=== PATIENT | male | born 1980 | race American Indian/Alaskan Native ===

== ENCOUNTER 2016-11-20 19:39 | Emergency (ER) | payer SELFPAY ==
[2016-11-20 20:19] VITALS: BP 126/83
== END 2016-11-20 23:20 | disposition left against medical advice (07) ==
LOC: ED 19:39
DX: H57.8 Other specified disorders of eye and adnexa (principal); Z53.21 Procedure and treatment not carried out due to patient leaving prior to being seen by health care provider

== ENCOUNTER 2016-12-11 14:20 | Emergency (ER) | payer SELFPAY ==
[2016-12-11] MEDS ORDERED: DELTASONE ONE (19:54)
[2016-12-11] MEDS ORDERED: TYLENOL ONE (19:54)
[2016-12-11] MEDS ORDERED: DELTASONE PO ONE (20:04)
[2016-12-11] MEDS ORDERED: TYLENOL PO ONE (20:05)
[2016-12-11] MEDS ORDERED: DUONEB 0.5 MG-3 MG/3 ML SOLN IH ONE (20:05)
--- NOTE | 2016-12-11 20:19 | Emergency Department Report ---
Chief Complaint: Adult Asthma Stated Complaint: WEAK /FATIGUE - HPI History of Present Illness: 36-year-old male asthmatic presents with complaint of one week of worsening fever chills body aches and asthma exacerbations. Patient denies any history of intubations but has been hospitalized for asthma in the past - ROS Review of Systems: Week of bodyaches fever chills and asthma exacerbation - Exam Vital Signs: Vital Signs 12/11/16 14:42 Temperature 99.9 F H Pulse Rate 88 Respiratory 20 Rate Blood Pressure 128/92 O2 Sat by Pulse 95 Oximetry Physical Exam: Bilateral lung wheezing on auscultation bodyaches MSE screening note: Focused history and physical exam performed. Due to findings the following was ordered: Screening Assessment/Plan/Differential Dx: Asthma exacerbation, flulike illness 1- This initial assessment/diagnostic orders/clinical plan/ treatment(s) is/are subject to change based on pt's health status, clinical progression and re- assessment by fellow clinical providers in the ED. Further treatment and workup at subsequent clinical provers discretion. Patient/guardians urged not to elope from ED as their condition may be serious if not clinically assessed and managed. 2-labs, x-ray, nebulizer treatment, prednisone, Tylenol, flu swab ED Disposition for MSE Condition: Stable
[2016-12-11 20:31] LABS: Basophils % (Auto) 0.5 % (0.0-1.8); Hematocrit 48.4 % (35.5-45.6); Hemoglobin 15.9 gm/dl (11.8-15.2); Mean Corpuscular HGB Conc 33 % (32-34); Mean Corpuscular Hemoglobin 31 pg (28-32); Mean Corpuscular Volume 94 fl (84-94); Platelet Count 198 K/mm3 (140-440); Red Blood Count 5.13 M/mm3 (3.65-5.03); Red Cell Distribution Width 13.5 % (13.2-15.2)
[2016-12-11 20:53] LABS: BUN/Creatinine Ratio 6.66; Blood Urea Nitrogen 6 mg/dL (9-20); Calcium 9.2 mg/dL (8.4-10.2); Carbon Dioxide 24 mmol/L (22-30); Glucose 80 mg/dL (75-100); Potassium 4.1 mmol/L (3.6-5.0); Sodium 138 mmol/L (137-145)
[2016-12-11 20:59] LABS: Anion Gap 19 mmol/L
[2016-12-11] MEDS ORDERED: PROVENTIL IH ONE (23:25)
[2016-12-11 23:27] VITALS: BP 142/77
--- NOTE | 2016-12-12 00:32 | Emergency Department Report ---
[id number] - HPI HPI: This is a 36-year-old Afro-[place]ian male presents emergency department with a one-day history of shortness of breath, wheezing, mixed dry and productive cough. He also complains of some pain in the back that seems to go down into the legs, that worsens with his cough. He denies any fever, chest pain, nausea , vomiting or diaphoresis. Patient has a history of asthma. He has a breathing machine at home but it only works intermittently and therefore is not able to use it prior to presentation. He does not have a primary care doctor. No sick contacts at home. No recent travel. ED Past Medical Hx - Past Medical History Previous Medical History?: Yes Hx Asthma: Yes Additional medical history: "BRONCHITIS" - Surgical History Past Surgical History?: No - Social History Smoking Status: Current Every Day Smoker Substance Use Type: Alcohol - Medications Home Medications: Home Medications Medication Instructions Recorded Confirmed Last Taken Type ALBUTEROL Inhaler [ProAir HFA 2 puff IH QID PRN #1 inhalation 12/12/16 Unknown Rx Inhaler] ALBUTEROL NEB's [Proventil 0.083% 2.5 mg IH TID PRN #1 box 12/12/16 Unknown Rx NEBS] Azithromycin [Zithromax Z-DIANELYS] 250 mg PO DAILY #6 tab 12/12/16 Unknown Rx predniSONE [Deltasone] 20 mg PO BID #10 tab 12/12/16 Unknown Rx ED Review of Systems ROS: Stated complaint: WEAK /FATIGUE Other details as noted in HPI Comment: All other systems reviewed and negative Constitutional: denies: chills, fever Eyes: denies: eye pain, eye discharge, vision change ENT: denies: ear pain, throat pain Respiratory: cough, shortness of breath, wheezing Cardiovascular: denies: chest pain, palpitations Gastrointestinal: denies: abdominal pain, nausea, diarrhea Genitourinary: denies: urgency, dysuria Musculoskeletal: back pain. denies: joint swelling Skin: denies: rash, lesions Neurological: denies: headache, weakness, paresthesias Physical Exam - Physical Exam Vital Signs: Vital Signs 12/11/16 12/11/16 12/11/16 14:42 21:37 21:47 Temperature 99.9 F H Pulse Rate 88 Pulse Rate [ 98 H 99 H Anterior Bilateral Throughout] Respiratory 20 Rate Respiratory 18 18 Rate [Anterior Bilateral Throughout] Blood Pressure 128/92 Blood Pressure [Right] O2 Sat by Pulse 95 Oximetry 12/11/16 12/11/16 23:21 23:25 Temperature 98.6 F Pulse Rate 85 Pulse Rate [ Anterior Bilateral Throughout] Respiratory 20 20 Rate Respiratory Rate [Anterior Bilateral Throughout] Blood Pressure Blood Pressure 142/77 [Right] O2 Sat by Pulse 96 96 Oximetry Physical Exam: GENERAL: The patient is well-developed well-nourished. HEENT: Normocephalic. Atraumatic. Extraocular motions are intact. Patient has moist mucous membranes. Pupils equal reactive to light bilaterally. NECK: Supple. Trachea is midline. CHEST/LUNGS: Mild wheezing throughout the chest. A dry sounding cough is heard during examination. No tachypnea or accessory muscle use. There is no respiratory distress noted. HEART/CARDIOVASCULAR: Regular. There is no tachycardia. There is no gallop rub or murmur. ABDOMEN: Abdomen is soft, nontender. Patient has normal bowel sounds. There is no abdominal distention. SKIN: Skin is warm and dry. NEURO: The patient is awake, alert, and oriented. The patient is cooperative. The patient has no focal neurologic deficits. The patient has normal speech and gait. MUSCULOSKELETAL: There is no tenderness or deformity. There is no limitation range of motion. There is no evidence of acute injury. BACK: No midline thoracic or lumbar tenderness to palpation or deformity. ED Course Vital Signs 12/11/16 12/11/16 12/11/16 14:42 21:37 21:47 Temperature 99.9 F H Pulse Rate 88 Pulse Rate [ 98 H 99 H Anterior Bilateral Throughout] Respiratory 20 Rate Respiratory 18 18 Rate [Anterior Bilateral Throughout] Blood Pressure 128/92 Blood Pressure [Right] O2 Sat by Pulse 95 Oximetry 12/11/16 12/11/16 23:21 23:25 Temperature 98.6 F Pulse Rate 85 Pulse Rate [ Anterior Bilateral Throughout] Respiratory 20 20 Rate Respiratory Rate [Anterior Bilateral Throughout] Blood Pressure Blood Pressure 142/77 [Right] O2 Sat by Pulse 96 96 Oximetry ED Medical Decision Making - Lab Data Result diagrams: 12/11/16 20:14 12/11/16 20:14 - Radiology Data Radiology results: image reviewed interpreted by me: Chest x-ray did not show any acute process. Heart is normal shape and size. No effusions. No pneumothorax. No signs of pneumonia seen. - Medical Decision Making 36-year-old male presents to the emergency department with a few days of wheezing, cough, back pain and body aches. Patient also has a low-grade fever or close to one at 99.9 Fahrenheit. Chest x-ray does not show any acute process including no signs of pneumonia. Patient was negative for influenza. Patient has a mild leukocytosis but otherwise the labs are unremarkable. He received a breathing treatment upon presentation and then a second one just prior to discharge. He was reevaluated and his bronchospasm is improved. Patient will be discharged home with a 5 day course of steroids, Z-Dianelys and albuterol. He was given referrals for primary care. He will return to the ER with any worsening of symptoms or any acute distress. - Differential Diagnosis pneumonia, bronchitis, asthma, viral URI Critical Care Time: No Critical care attestation.: If time is entered above; I have spent that time in minutes in the direct care of this critically ill patient, excluding procedure time. ED Disposition Clinical Impression: Bronchospasm, Bronchitis Disposition: DISCHARGED TO HOME OR SELFCARE Is pt being admited?: No Condition: Stable Instructions: Asthma (ED), Chronic Bronchitis (ED) Additional Instructions: These follow-up with a primary care doctor the next few days. Return to the emergency department with any worsening of your symptoms or any acute distress. Prescriptions: predniSONE [Deltasone] 20 mg PO BID #10 tab ALBUTEROL Inhaler [ProAir HFA Inhaler] 2 puff IH QID PRN #1 inhalation PRN Reason: Shortness Of Breath ALBUTEROL NEB's [Proventil 0.083% NEBS] 2.5 mg IH TID PRN #1 box PRN Reason: Wheezing Azithromycin [Zithromax Z-DIANELYS] 250 mg PO DAILY #6 tab Referrals: PRIMARY CARE, [Primary Care Provider] - 3-5 Days [facility] [Outside] - 3-5 Days Forms: Work/School Release Form(ED) Time of Disposition: 00:32
--- NOTE | 2016-12-12 08:20 | XRay Report ---
CHEST TWO VIEWS: 12/11/16 14:20:00 CLINICAL: Cough. COMPARISON: 01/18/16 FINDINGS: Normal heart and pulmonary vasculature. The lungs are mildly hyperexpanded and clear.The bones and soft tissues are unremarkable. IMPRESSION: Pulmonary hyperinflation but otherwise normal.No pneumonia.
== END 2016-12-12 00:47 | disposition home or self-care (01) ==
LOC: ED 14:20
DX: J40 Bronchitis, not specified as acute or chronic (principal); J45.909 Unspecified asthma, uncomplicated; F17.200 Nicotine dependence, unspecified, uncomplicated
CPT/HCPCS: 36415; 71020; 80048; 82140; 82805; 85025; 87400; 94640; 99284; J7512

== ENCOUNTER 2019-07-12 14:35 | Emergency (ER) | payer SELFPAY ==
[2019-07-12] MEDS ORDERED: DELTASONE PO ONE (14:56)
[2019-07-12] MEDS ORDERED: DUONEB *Not for PRN Use IH ONE (14:56)
--- NOTE | 2019-07-12 14:56 | Event Note ---
ED Screening Note ED Screening Note: COUGH CONGESTION WHEEZING PMH ASTHMA THC OUT OF MEDS PSH NONE This initial assessment/diagnostic orders/clinical plan/treatment(s) is/are subject to change based on patients health status, clinical progression and re- assessment by fellow clinical providers in the ED. Further treatment and workup at subsequent clinical providers discretion. Patient/guardian urged not to elope from the ED as their condition may be serious if not clinically assessed and managed. Initial orders include: DUONEB AND RX XRAY
[2019-07-12 14:58] VITALS: BP 147/103
[2019-07-12] MEDS ORDERED: SOLU-Medrol IM ONE (15:21)
--- NOTE | 2019-07-12 15:25 | Emergency Department Report ---
ED Asthma HPI - General Chief Complaint: Adult Asthma Stated Complaint: ASTHMA/SOB/COUGH/NO ENERGY Time Seen by Provider: 07/12/19 14:55 Source: patient Mode of arrival: Ambulatory Limitations: No Limitations - History of Present Illness Initial Comments: Patient is a 38-year-old male with history of asthma. Patient presented to the ER complaining of shortness of breath and wheezing for the last 3 days. Patient stated that he has been using his albuterol nebulizer but no improvement. Patient denied any fever or chills. No chest pain. MD Complaint: shortness of breath, wheezing Context: recent URI Associated Symptoms: dry cough Treatments Prior to Arrival: inhaled bronchodilator - Related Data Current Asthma Therapy: inhaled bronchodilator Previous Rx's Medication Instructions Recorded Last Taken Type ALBUTEROL Inhaler (OR & NICU) 2 puff IH QID PRN #1 inhalation 12/12/16 Unknown Rx [ProAir HFA Inhaler] ALBUTEROL NEB's [Proventil 0.083% 2.5 mg IH TID PRN #1 box 12/12/16 Unknown Rx NEBS] Azithromycin [Zithromax Z-DIANELYS] 250 mg PO DAILY #6 tab 12/12/16 Unknown Rx predniSONE [Deltasone] 20 mg PO BID #10 tab 12/12/16 Unknown Rx Allergies Allergy/AdvReac Type Severity Reaction Status Date / Time No Known Allergies Allergy Verified 01/30/16 09:20 ED Review of Systems ROS: Stated complaint: ASTHMA/SOB/COUGH/NO ENERGY Other details as noted in HPI Comment: All other systems reviewed and negative Constitutional: denies: chills, fever Respiratory: cough, shortness of breath, wheezing. denies: orthopnea, SOB with exertion Cardiovascular: denies: chest pain, palpitations Gastrointestinal: denies: abdominal pain, nausea, vomiting Musculoskeletal: denies: back pain ED Past Medical Hx - Past Medical History Hx Asthma: Yes Additional medical history: "BRONCHITIS" - Surgical History Past Surgical History?: No - Social History Smoking Status: Never Smoker Substance Use Type: Marijuana - Medications Home Medications: Home Medications Medication Instructions Recorded Confirmed Last Taken Type ALBUTEROL Inhaler (OR & NICU) 2 puff IH QID PRN #1 inhalation 12/12/16 Unknown Rx [ProAir HFA Inhaler] ALBUTEROL NEB's [Proventil 0.083% 2.5 mg IH TID PRN #1 box 12/12/16 Unknown Rx NEBS] Azithromycin [Zithromax Z-DIANELYS] 250 mg PO DAILY #6 tab 12/12/16 Unknown Rx predniSONE [Deltasone] 20 mg PO BID #10 tab 12/12/16 Unknown Rx ED Physical Exam - General Limitations: No Limitations General appearance: alert, in no apparent distress - Head Head exam: Present: atraumatic, normocephalic, normal inspection - Eye Eye exam: Present: normal appearance, PERRL - ENT ENT exam: Present: normal exam, normal orophraynx, mucous membranes moist - Neck Neck exam: Present: normal inspection, full ROM. Absent: tenderness, meningismus, lymphadenopathy, thyromegaly - Respiratory Respiratory exam: Present: respiratory distress, wheezes, prolonged expiratory. Absent: rales, rhonchi, stridor, chest wall tenderness, accessory muscle use, decreased breath sounds - Cardiovascular Cardiovascular Exam: Present: regular rate, normal rhythm, normal heart sounds - GI/Abdominal GI/Abdominal exam: Present: soft, normal bowel sounds. Absent: distended, tenderness, guarding, rebound, rigid, mass, bruit, pulsatile mass, hernia - Extremities Exam Extremities exam: Present: normal inspection, full ROM, normal capillary refill. Absent: tenderness, pedal edema, calf tenderness - Back Exam Back exam: Present: normal inspection, full ROM. Absent: CVA tenderness (R), CVA tenderness (L), muscle spasm, paraspinal tenderness, vertebral tenderness - Neurological Exam Neurological exam: Present: alert, oriented X3, CN II-XII intact, normal gait, reflexes normal - Psychiatric Psychiatric exam: Present: normal mood - Skin Skin exam: Present: warm, intact, normal color ED Course Vital Signs 07/12/19 07/12/19 14:56 15:50 Temperature 98.7 F Pulse Rate 106 H Pulse Rate [ 98 H Posterior Bilateral Throughout] Respiratory 22 Rate Respiratory 22 Rate [Posterior Bilateral Throughout] Blood Pressure 147/103 O2 Sat by Pulse 95 Oximetry ED Medical Decision Making - Radiology Data Radiology results: report reviewed Chest x-ray is negative for acute finding. - Medical Decision Making Patient is a 38-year-old male with history of asthma. Patient presented to the ER complaining of shortness of breath and wheezing for the last 3 days. Patient stated that he has been using his albuterol nebulizer but no improvement. Patient denied any fever or chills. No chest pain. Patient received albuterol and Atrovent twice. She also received Solu-Medrol. Patient symptoms have significantly improved and stated that he is feeling much better. Patient given a prescription for prednisone and albuterol inhaler and advised to follow-up with his primary care physician in the next 2-3 days and to return to the ER if symptoms are not improved. Critical care attestation.: If time is entered above; I have spent that time in minutes in the direct care of this critically ill patient, excluding procedure time. ED Disposition Clinical Impression: Asthma exacerbation, Bronchitis Disposition: DC-01 TO HOME OR SELFCARE Is pt being admited?: No Condition: Stable Instructions: Asthma (ED), Acute Bronchitis (ED) Referrals: [facility] [Provider Group] - 3-5 Days
--- NOTE | 2019-07-12 15:29 | XRay Report ---
CHEST 2 VIEWS INDICATION / CLINICAL INFORMATION: WHEEZING. COMPARISON: 2 views of the chest from 12/11/2016. FINDINGS: SUPPORT DEVICES: None. HEART / MEDIASTINUM: No significant abnormality. LUNGS / PLEURA: No significant pulmonary or pleural abnormality. No pneumothorax. ADDITIONAL FINDINGS: No significant additional findings. IMPRESSION: No acute abnormality of the chest. Signer Name: Jason Greene MD Signed: 07/12/2019 3:24 PM Workstation Name: [id number]
[2019-07-12] MEDS ORDERED: PROVENTIL IH ONE ×2 (15:31→15:34)
[2019-07-12] MEDS ORDERED: ATROVENT IH ONE ×2 (15:32→15:35)
[2019-07-12] MEDS ORDERED: TYLENOL PO ONE (16:50)
[2019-07-12] MEDS ORDERED: TYLENOL ONE (16:52)
== END 2019-07-12 16:53 | disposition home or self-care (01) ==
LOC: ED 14:35
DX: J45.901 Unspecified asthma with (acute) exacerbation (principal); F12.10 Cannabis abuse, uncomplicated
CPT/HCPCS: 71046; 94640; 96372; 99283; J2930; 94644

== ENCOUNTER 2021-03-30 12:22 | Emergency (ER) | payer SELFPAY ==
[2021-03-30 13:23] VITALS: BP 135/79
[2021-03-30] MEDS ORDERED: IPRATROPIUM 0.02% NEBU 2.5 ML IH ONE (13:23)
[2021-03-30] MEDS ORDERED: dexAMETHasone 20 MG/5 ML VIAL IM ONE (13:23)
[2021-03-30] MEDS ORDERED: ALBUTEROL 2.5 MG/3 ML NEBU IH ONE (13:23)
--- NOTE | 2021-03-30 13:32 | Emergency Department Report ---
ED Asthma HPI - General Chief Complaint: Dyspnea/Respdistress Stated Complaint: ASTHMA Time Seen by Provider: 03/30/21 13:23 Source: patient Mode of arrival: Ambulatory Limitations: No Limitations - History of Present Illness Initial Comments: Patient is a 40-year-old male who presents emergency room with complaints of an asthma exacerbation over the last 2 weeks. He has associated shortness of breath, wheezing, chest tightness. He states that his breathing machine has been broken for approximately 2 years. He states that he borrowed an inhaler f rom a friend. He states that the albuterol inhaler ran out. He denies any fever, productive cough, nausea, vomiting, diarrhea, chills. No other past medical history. No allergies medications. - Related Data Previous Rx's Medication Instructions Recorded Last Taken Type ALBUTEROL NEB's [Proventil 0.083% 2.5 mg IH TID PRN #1 box 12/12/16 Unknown Rx NEBS] Albuterol Mdi (or & Nicu Only) 2 puff IH QID PRN #1 inhalation 12/12/16 Unknown Rx [ProAir HFA Inhaler] Azithromycin [Zithromax Z-DIANELYS] 250 mg PO DAILY #6 tab 12/12/16 Unknown Rx predniSONE [Deltasone] 20 mg PO BID #10 tab 12/12/16 Unknown Rx Albuterol Mdi (or & Nicu Only) 2 puff IH QID PRN #1 inhalation 07/12/19 Unknown Rx [ProAir HFA Inhaler] Azithromycin [Zithromax Z-DIANELYS] 250 mg PO DAILY 1 Days tab 07/12/19 Unknown Rx Albuterol Sulfate [Proventil Hfa] 1 - 2 inhalation IH TID PRN #1 03/30/21 Unknown Rx hfa.[email or web address] Ipratropium/Albuterol Sulfate 1 ampul IH Q6HR PRN #30 vial 03/30/21 Unknown Rx [DUONEB *Not for PRN Use*] Nebulizer and Compressor 1 each MC TID #1 each 03/30/21 Unknown Rx [Compressor Nebulizer System] Prednisone [predniSONE 10 mg 10 mg PO .TAPER #1 tab.ds.pk 03/30/21 Unknown Rx (6-Day Pack, 21 Tabs)] Allergies Allergy/AdvReac Type Severity Reaction Status Date / Time No Known Allergies Allergy Verified 01/30/16 09:20 ED Review of Systems ROS: Stated complaint: ASTHMA Other details as noted in HPI Comment: All other systems reviewed and negative ED Past Medical Hx - Past Medical History Previous Medical History?: Yes Hx Asthma: Yes Additional medical history: "BRONCHITIS" - Social History Smoking Status: Never Smoker Substance Use Type: Marijuana - Medications Home Medications: Home Medications Medication Instructions Recorded Confirmed Last Taken Type ALBUTEROL NEB's [Proventil 0.083% 2.5 mg IH TID PRN #1 box 12/12/16 Unknown Rx NEBS] Albuterol Mdi (or & Nicu Only) 2 puff IH QID PRN #1 inhalation 12/12/16 Unknown Rx [ProAir HFA Inhaler] Azithromycin [Zithromax Z-DIANELYS] 250 mg PO DAILY #6 tab 12/12/16 Unknown Rx predniSONE [Deltasone] 20 mg PO BID #10 tab 12/12/16 Unknown Rx Albuterol Mdi (or & Nicu Only) 2 puff IH QID PRN #1 inhalation 07/12/19 Unknown Rx [ProAir HFA Inhaler] Azithromycin [Zithromax Z-DIANELYS] 250 mg PO DAILY 1 Days tab 07/12/19 Unknown Rx Albuterol Sulfate [Proventil Hfa] 1 - 2 inhalation IH TID PRN #1 03/30/21 Unknown Rx hfa.[email or web address] Ipratropium/Albuterol Sulfate 1 ampul IH Q6HR PRN #30 vial 03/30/21 Unknown Rx [DUONEB *Not for PRN Use*] Nebulizer and Compressor 1 each MC TID #1 each 03/30/21 Unknown Rx [Compressor Nebulizer System] Prednisone [predniSONE 10 mg 10 mg PO .TAPER #1 tab.ds.pk 03/30/21 Unknown Rx (6-Day Pack, 21 Tabs)] ED Physical Exam - General Limitations: No Limitations General appearance: alert, in no apparent distress - Head Head exam: Present: atraumatic, normocephalic - Eye Eye exam: Present: normal appearance - ENT ENT exam: Present: mucous membranes moist - Respiratory Respiratory exam: Present: wheezes (bilaterally, inspiratory and expiratory ), prolonged expiratory. Absent: respiratory distress, rales, rhonchi, stridor, chest wall tenderness, accessory muscle use, decreased breath sounds - Cardiovascular Cardiovascular Exam: Present: regular rate, normal rhythm, normal heart sounds. Absent: systolic murmur, diastolic murmur, rubs, gallop - Neurological Exam Neurological exam: Present: alert, oriented X3 - Psychiatric Psychiatric exam: Present: normal affect, normal mood - Skin Skin exam: Present: warm, dry, intact ED Course Vital Signs 03/30/21 03/30/21 13:20 14:12 Temperature 98.1 F Pulse Rate 70 Pulse Rate [ 98 H Anterior Bilateral Throughout] Respiratory 20 Rate Respiratory 22 Rate [Anterior Bilateral Throughout] Blood Pressure 135/79 [Right] O2 Sat by Pulse 97 Oximetry ED Medical Decision Making - Medical Decision Making Patient is a 40-year-old male who presents emergency room with complaints of an asthma exacerbation over the last 2 weeks. He has associated shortness of breath, wheezing, chest tightness. He states that his breathing machine has been broken for approximately 2 years. He states that he borrowed an inhaler from a friend. He states that the albuterol inhaler ran out. He denies any fever, productive cough, nausea, vomiting, diarrhea, chills. No other past medical history. No allergies medications. Vitals are stable. On exam patient has wheezing throughout and prolonged expiratory phase. Patient given neb treatment and steroids IM. On reexamination wheezing has improved, patient is feeling much better. Patient has no clinical signs of bacterial pneumonia or bacterial bronchitis. Patient given prescription for medications. Advised patient Please take medication as prescribed. Follow-up with your primary care doctor. Return emergency room for any worsening Critical care attestation.: If time is entered above; I have spent that time in minutes in the direct care of this critically ill patient, excluding procedure time. ED Disposition Clinical Impression: Asthma exacerbation Qualifiers: Asthma severity: unspecified severity Asthma persistence: unspecified Qualified Code(s): J45.901 - Unspecified asthma with (acute) exacerbation Disposition: DC-01 TO HOME OR SELFCARE Is pt being admited?: No Does the pt Need Aspirin: No Condition: Stable Instructions: Asthma, Adult Additional Instructions: Please take medication as prescribed. Follow-up with your primary care doctor. Return emergency room for any worsening Prescriptions: Nebulizer and Compressor [Compressor Nebulizer System] 1 each MC TID #1 each Ipratropium/Albuterol Sulfate [DUONEB *Not for PRN Use*] 1 ampul IH Q6HR PRN #30 vial PRN Reason: shortness of breath/wheezing Prednisone [predniSONE 10 mg (6-Day Pack, 21 Tabs)] 10 mg PO .TAPER #1 tab.ds.pk Albuterol Sulfate [Proventil Hfa] 1 - 2 inhalation IH TID PRN #1 hfa.aer.ad PRN Reason: shortness of breath/wheezing Referrals: PRIMARY MD MONTSERRAT [Primary Care Provider] - 2-3 Days GUILHERME ARRIAZA MD [Staff Physician] - 2-3 Days [facility] [Provider Group] - 2-3 Days [facility], [LAB/CONTRACT] - 2-3 Days [facility] [Outside] - 2-3 Days Time of Disposition: 14:22 Print Language: NEPALI
== END 2021-03-30 15:30 | disposition home or self-care (01) ==
LOC: ED 12:22
DX: J45.901 Unspecified asthma with (acute) exacerbation (principal); F12.10 Cannabis abuse, uncomplicated; Z79.2 Long term (current) use of antibiotics; Z79.899 Other long term (current) drug therapy
CPT/HCPCS: 94640; 96372; 99282; J1100; 94644

== ENCOUNTER 2021-05-04 17:21 | Emergency (ER) | payer SELFPAY ==
[2021-05-04] MEDS ORDERED: dexAMETHasone 20 MG/5 ML VIAL IM ONE (21:05)
[2021-05-04] MEDS ORDERED: IPRATROPIUM 0.02% NEBU 2.5 ML IH ONE (21:05)
[2021-05-04] MEDS ORDERED: ALBUTEROL 2.5 MG/3 ML NEBU IH ONE (21:05)
--- NOTE | 2021-05-04 22:07 | Emergency Department Report ---
ED Asthma HPI - General Chief Complaint: Adult Asthma Stated Complaint: ASTHMA/SOB Time Seen by Provider: 05/04/21 21:05 Source: patient Mode of arrival: Ambulatory Limitations: No Limitations - History of Present Illness Initial Comments: 40-year-old -[place] male presents emergency department complaining of a 7-day history of waxing and waning/progressively worsening shortness of breath associated with chest tightness and yellow sputum. States that he has been using his inhaler off and on but feels he needs steroids and albuterol nebulizer treatment to evaluate this asthma flareup. States that he does flareup from time to time, unable to utilize his home therapy to treat these current symptoms. He reports no nausea, no vomiting, no no fevers chills or sweats. No hemoptysis hematemesis hematochezia. -: Gradual, days(s) (7) Asthma History: history of prior ED visit Severity: moderate Context: recent URI Associated Symptoms: productive cough - Related Data Current Asthma Therapy: inhaled bronchodilator Previous Rx's Medication Instructions Recorded Last Taken Type ALBUTEROL NEB's [Proventil 0.083% 2.5 mg IH TID PRN #1 box 12/12/16 Unknown Rx NEBS] Albuterol Mdi (or & Nicu Only) 2 puff IH QID PRN #1 inhalation 12/12/16 Unknown Rx [ProAir HFA Inhaler] Azithromycin [Zithromax Z-DIANELYS] 250 mg PO DAILY #6 tab 12/12/16 Unknown Rx predniSONE [Deltasone] 20 mg PO BID #10 tab 12/12/16 Unknown Rx Albuterol Mdi (or & Nicu Only) 2 puff IH QID PRN #1 inhalation 07/12/19 Unknown Rx [ProAir HFA Inhaler] Azithromycin [Zithromax Z-DIANELYS] 250 mg PO DAILY 1 Days tab 07/12/19 Unknown Rx Albuterol Sulfate [Proventil Hfa] 1 - 2 inhalation IH TID PRN #1 03/30/21 Unknown Rx [email or web address] Ipratropium/Albuterol Sulfate 1 ampul IH Q6HR PRN #30 vial 03/30/21 Unknown Rx [DUONEB *Not for PRN Use*] Nebulizer and Compressor 1 each MC TID #1 each 03/30/21 Unknown Rx [Compressor Nebulizer System] Prednisone [predniSONE 10 mg 10 mg PO .TAPER #1 tab.ds.pk 03/30/21 Unknown Rx (6-Day Pack, 21 Tabs)] Azithromycin [Zithromax] 500 mg PO QDAY #5 tablet 05/04/21 Unknown Rx Montelukast [Singulair] 10 mg PO QPM #14 tablet 05/04/21 Unknown Rx predniSONE [Deltasone] 20 mg PO QDAY #5 tab 05/04/21 Unknown Rx Allergies Allergy/AdvReac Type Severity Reaction Status Date / Time No Known Allergies Allergy Verified 01/30/16 09:20 ED Review of Systems ROS: Stated complaint: ASTHMA/SOB Other details as noted in HPI ED Past Medical Hx - Past Medical History Previous Medical History?: Yes Hx Asthma: Yes Additional medical history: "BRONCHITIS" - Surgical History Past Surgical History?: No - Social History Smoking Status: Never Smoker Substance Use Type: None - Medications Home Medications: Home Medications Medication Instructions Recorded Confirmed Last Taken Type ALBUTEROL NEB's [Proventil 0.083% 2.5 mg IH TID PRN #1 box 12/12/16 Unknown Rx NEBS] Albuterol Mdi (or & Nicu Only) 2 puff IH QID PRN #1 inhalation 12/12/16 Unknown Rx [ProAir HFA Inhaler] Azithromycin [Zithromax Z-DIANELYS] 250 mg PO DAILY #6 tab 12/12/16 Unknown Rx predniSONE [Deltasone] 20 mg PO BID #10 tab 12/12/16 Unknown Rx Albuterol Mdi (or & Nicu Only) 2 puff IH QID PRN #1 inhalation 07/12/19 Unknown Rx [ProAir HFA Inhaler] Azithromycin [Zithromax Z-DIANELYS] 250 mg PO DAILY 1 Days tab 07/12/19 Unknown Rx Albuterol Sulfate [Proventil Hfa] 1 - 2 inhalation IH TID PRN #1 03/30/21 Unknown Rx [email or web address] Ipratropium/Albuterol Sulfate 1 ampul IH Q6HR PRN #30 vial 03/30/21 Unknown Rx [DUONEB *Not for PRN Use*] Nebulizer and Compressor 1 each MC TID #1 each 03/30/21 Unknown Rx [Compressor Nebulizer System] Prednisone [predniSONE 10 mg 10 mg PO .TAPER #1 tab.ds.pk 03/30/21 Unknown Rx (6-Day Pack, 21 Tabs)] Azithromycin [Zithromax] 500 mg PO QDAY #5 tablet 05/04/21 Unknown Rx Montelukast [Singulair] 10 mg PO QPM #14 tablet 05/04/21 Unknown Rx predniSONE [Deltasone] 20 mg PO QDAY #5 tab 05/04/21 Unknown Rx ED Physical Exam - General Limitations: No Limitations General appearance: alert, in no apparent distress, other (No significant distress patient is sitting in room eating a pop tart speaking in full sentences. Requesting an albuterol breathing treatment and nebulizer paraphernalia for his home machine as his mask cord is broken) - Head Head exam: Present: atraumatic, normocephalic - Eye Eye exam: Present: normal appearance - ENT ENT exam: Present: mucous membranes moist - Neck Neck exam: Present: normal inspection - Respiratory Respiratory exam: Present: normal lung sounds bilaterally, wheezes. Absent: respiratory distress, chest wall tenderness, accessory muscle use - Cardiovascular Cardiovascular Exam: Present: regular rate, normal rhythm. Absent: systolic murmur, diastolic murmur, rubs, gallop - GI/Abdominal GI/Abdominal exam: Present: soft, normal bowel sounds - Rectal Rectal exam: Present: deferred - Extremities Exam Extremities exam: Present: normal inspection, normal capillary refill - Back Exam Back exam: Present: normal inspection. Absent: CVA tenderness (R), CVA ten derness (L) - Neurological Exam Neurological exam: Present: alert, oriented X3, CN II-XII intact, normal gait - Psychiatric Psychiatric exam: Present: normal affect, normal mood. Absent: anxious, flat affect - Skin Skin exam: Present: warm, dry, intact, normal color. Absent: rash, diaphoretic, erythema, petechiae, pallor, abrasion ED Course Vital Signs 05/04/21 20:33 Temperature 98.6 F Pulse Rate 98 H Respiratory 18 Rate Blood Pressure 148/112 O2 Sat by Pulse 95 Oximetry - Reevaluation(s) Reevaluation #1: 05/04/21 22:33 Wheezing breathing treatment patient is ambulatory no acute distress speaking in full sentences stable ED Medical Decision Making - Medical Decision Making No altered mental status, saddle respirations, belly breathing or other signs of impending ventilatory failure. No intubations or recent admissions to the hospital for asthma. Unlikely pneumonia, CHF, COPD, GERD Workup Review include a chest x-ray which was normal she also received steroids and albuterol Therapies: Prednisone 50 mg PO. Albuterol nebulizer Reassessment: Patient improved with albuterol and ipratropium in less than 3 hours. Disposition: Discharge home with return precautions. Advised to follow up with primary care physician within next 24-48 hours. Aside from this acute exacerbation patient has been well controlled on baseline home regimen. Rx short steroid course, albuterol, Singulair, Flovent Critical care attestation.: If time is entered above; I have spent that time in minutes in the direct care of this critically ill patient, excluding procedure time. ED Disposition Clinical Impression: Asthma Disposition: TO HOME OR SELFCARE Is pt being admited?: No Does the pt Need Aspirin: No Condition: Stable Instructions: Asthma, Adult, Bronchospasm, Adult, Cough, Adult, [id number], Asthma Attack, Cough, Adult, Asthma Attack Prevention, Adult, Asthma (ED) Prescriptions: predniSONE [Deltasone] 20 mg PO QDAY #5 tab Montelukast [Singulair] 10 mg PO QPM #14 tablet Azithromycin [Zithromax] 500 mg PO QDAY #5 tablet Referrals: RAFAEL PAUL MD [Primary Care Provider] - 3-5 Days
[2021-05-04 22:46] VITALS: BP 118/83
== END 2021-05-04 22:50 | disposition home or self-care (01) ==
LOC: ED 17:21
DX: J45.909 Unspecified asthma, uncomplicated (principal); Z79.899 Other long term (current) drug therapy
CPT/HCPCS: 94640; 96372; 99282; J1100; 94644

== ENCOUNTER 2021-11-06 16:36 | Emergency (ER) | payer SELFPAY ==
[2021-11-06] MEDS ORDERED: SODIUM CHLORIDE 0.9% 1000 ML 1,000 ML IV ONE (20:21)
[2021-11-06] MEDS ORDERED: KETOROLAC 30 MG/1 ML INJ IV ONE (20:21)
[2021-11-06] MEDS ORDERED: ONDANSETRON 4 MG/2 ML INJ IV ONE (20:21)
--- NOTE | 2021-11-06 20:52 | Emergency Department Report ---
ED General Adult HPI - General Chief complaint: Back Pain/Injury Stated complaint: MULTIPLE COMPLAINTS Time Seen by Provider: 11/06/21 20:20 Source: patient Mode of arrival: Ambulatory Limitations: No Limitations - History of Present Illness Initial comments: Is a 40-year-old male who presents with bilateral low back pain that radiates to suprapubic area x3 days patient states fevers chills nausea and malaise. Patient states urinary hesitancy dysuria no hematuria no history of renal stones. Symptoms exacerbated by activity and p.o. intake. Symptoms relieved by nothing tried. Patient is not Covid vaccinated. Denies productive cough however. - Related Data Previous Rx's Medication Instructions Recorded Last Taken Type ALBUTEROL NEB's [Proventil 0.083% 2.5 mg IH TID PRN #1 box 12/12/16 Unknown Rx NEBS] Albuterol Mdi (or & Nicu Only) 2 puff IH QID PRN #1 inhalation 12/12/16 Unknown Rx [ProAir HFA Inhaler] Azithromycin [Zithromax Z-DIANELYS] 250 mg PO DAILY #6 tab 12/12/16 Unknown Rx predniSONE [Deltasone] 20 mg PO BID #10 tab 12/12/16 Unknown Rx Albuterol Mdi (or & Nicu Only) 2 puff IH QID PRN #1 inhalation 07/12/19 Unknown Rx [ProAir HFA Inhaler] Azithromycin [Zithromax Z-DIANEYLS] 250 mg PO DAILY 1 Days tab 07/12/19 Unknown Rx Albuterol Sulfate [Proventil Hfa] 1 - 2 inhalation IH TID PRN #1 03/30/21 Unknown Rx [email or web address] Ipratropium/Albuterol Sulfate 1 ampul IH Q6HR PRN #30 vial 03/30/21 Unknown Rx [DUONEB *Not for PRN Use*] Nebulizer and Compressor 1 each MC TID #1 each 03/30/21 Unknown Rx [Compressor Nebulizer System] Prednisone [predniSONE 10 mg 10 mg PO .TAPER #1 tab.ds.pk 03/30/21 Unknown Rx (6-Day Pack, 21 Tabs)] Azithromycin [Zithromax] 500 mg PO QDAY #5 tablet 05/04/21 Unknown Rx Montelukast [Singulair] 10 mg PO QPM #14 tablet 05/04/21 Unknown Rx predniSONE [Deltasone] 20 mg PO QDAY #5 tab 05/04/21 Unknown Rx Cyclobenzaprine [Flexeril] 10 mg PO TID PRN #20 tablet 11/07/21 Unknown Rx Menthol/Camphor [[place] 1 applicator TP QID PRN #1 tube 11/07/21 Unknown Rx Ointment] Naproxen 500 mg PO BID PRN #30 tablet 11/07/21 Unknown Rx Allergies Allergy/AdvReac Type Severity Reaction Status Date / Time No Known Allergies Allergy Verified 05/04/21 22:43 ED Review of Systems ROS: Stated complaint: MULTIPLE COMPLAINTS Other details as noted in HPI Constitutional: chills, fever Eyes: denies: eye pain, eye discharge, vision change ENT: congestion. denies: ear pain, throat pain Respiratory: denies: cough, shortness of breath, wheezing Cardiovascular: denies: chest pain, palpitations Endocrine: no symptoms reported Gastrointestinal: abdominal pain, nausea. denies: diarrhea, constipation, melena Genitourinary: urgency, frequency. denies: dysuria, hematuria, discharge, testicular pain Musculoskeletal: back pain Skin: denies: rash, lesions Neurological: as per HPI Psychiatric: denies: anxiety, depression Hematological/Lymphatic: as per HPI ED Past Medical Hx - Past Medical History Hx Hypertension: Yes Hx Asthma: Yes Additional medical history: "BRONCHITIS" - Social History Smoking Status: Never Smoker Substance Use Type: None - Medications Home Medications: Home Medications Medication Instructions Recorded Confirmed Last Taken Type ALBUTEROL NEB's [Proventil 0.083% 2.5 mg IH TID PRN #1 box 12/12/16 Unknown Rx NEBS] Albuterol Mdi (or & Nicu Only) 2 puff IH QID PRN #1 inhalation 12/12/16 Unknown Rx [ProAir HFA Inhaler] Azithromycin [Zithromax Z-DIANELYS] 250 mg PO DAILY #6 tab 12/12/16 Unknown Rx predniSONE [Deltasone] 20 mg PO BID #10 tab 12/12/16 Unknown Rx Albuterol Mdi (or & Nicu Only) 2 puff IH QID PRN #1 inhalation 07/12/19 Unknown Rx [ProAir HFA Inhaler] Azithromycin [Zithromax Z-DIANELYS] 250 mg PO DAILY 1 Days tab 07/12/19 Unknown Rx Albuterol Sulfate [Proventil Hfa] 1 - 2 inhalation IH TID PRN #1 03/30/21 U nknown Rx [email or web address] Ipratropium/Albuterol Sulfate 1 ampul IH Q6HR PRN #30 vial 03/30/21 Unknown Rx [DUONEB *Not for PRN Use*] Nebulizer and Compressor 1 each MC TID #1 each 03/30/21 Unknown Rx [Compressor Nebulizer System] Prednisone [predniSONE 10 mg 10 mg PO .TAPER #1 tab.ds.pk 03/30/21 Unknown Rx (6-Day Pack, 21 Tabs)] Azithromycin [Zithromax] 500 mg PO QDAY #5 tablet 05/04/21 Unknown Rx Montelukast [Singulair] 10 mg PO QPM #14 tablet 05/04/21 Unknown Rx predniSONE [Deltasone] 20 mg PO QDAY #5 tab 05/04/21 Unknown Rx Cyclobenzaprine [Flexeril] 10 mg PO TID PRN #20 tablet 11/07/21 Unknown Rx Menthol/Camphor [[place] 1 applicator TP QID PRN #1 tube 11/07/21 Unknown Rx Ointment] Naproxen 500 mg PO BID PRN #30 tablet 11/07/21 Unknown Rx ED Physical Exam - General Limitations: No Limitations General appearance: alert, in no apparent distress - Head Head exam: Present: atraumatic, normocephalic - Eye Eye exam: Present: EOMI Pupils: Present: normal accommodation - ENT ENT exam: Present: mucous membranes moist - Neck Neck exam: Present: normal inspection, full ROM. Absent: tenderness, lymphadenopathy, thyromegaly - Respiratory Respiratory exam: Present: normal lung sounds bilaterally. Absent: respiratory distress, wheezes, stridor, chest wall tenderness - Cardiovascular Cardiovascular Exam: Present: regular rate, normal rhythm, normal heart sounds. Absent: systolic murmur, diastolic murmur, rubs, gallop - GI/Abdominal GI/Abdominal exam: Present: soft, normal bowel sounds. Absent: distended, tenderness, guarding, rebound, rigid, bruit, hernia - Rectal Rectal exam: Present: deferred - Extremities Exam Extremities exam: Present: normal inspection, full ROM. Absent: tenderness - Back Exam Back exam: Present: full ROM, CVA tenderness (R), CVA tenderness (L) - Neurological Exam Neurological exam: Present: alert, oriented X3, CN II-XII intact, normal gait - Psychiatric Psychiatric exam: Present: normal affect, normal mood - Skin Skin exam: Present: warm, dry, intact, normal color. Absent: rash ED Course Vital Signs 11/06/21 16:53 Temperature 98.4 F Pulse Rate 104 H Respiratory 16 Rate Blood Pressure 148/99 O2 Sat by Pulse 97 Oximetry ED Medical Decision Making - Lab Data Result diagrams: 11/06/21 20:37 11/06/21 20:37 Labs 11/06/21 11/06/21 11/07/21 20:37 20:37 02:17 WBC 12.6 H RBC 4.73 Hgb 14.0 Hct 44.3 MCV 94 MCH 30 MCHC 32 RDW 14.9 Plt Count 206 Lymph % (Auto) 2.7 L [place] % (Auto) 12.9 H Eos % (Auto) 6.9 H Baso % (Auto) 0.6 Lymph # (Auto) 0.3 L [place] # (Auto) 1.6 H Eos # (Auto) 0.9 H Baso # (Auto) 0.1 Seg Neutrophils % 76.9 H Seg Neutrophils # 9.7 H Sodium 137 Potassium 4.2 Chloride 98.1 Carbon Dioxide 23 Anion Gap 20 BUN 10 Creatinine 1.1 Estimated GFR > 60 BUN/Creatinine Ratio 9 Glucose 90 Calcium 9.7 Total Bilirubin 0.50 AST 15 ALT 17 Alkaline Phosphatase 86 Total Protein 7.2 Albumin 4.6 Albumin/Globulin Ratio 1.8 Lipase 29 Urine Color Yellow Urine Turbidity Clear Urine pH 6.0 Ur Specific [place] 1.017 Urine Protein <15 mg/dl Urine Glucose (UA) Neg Urine Ketones Neg Urine Blood Neg Urine Nitrite Neg Urine Bilirubin Neg Urine Urobilinogen 4.0 Ur Leukocyte Esterase Neg Urine WBC (Auto) 1.0 Urine RBC (Auto) 1.0 Urine Mucus 2+ - Medical Decision Making Patient rehydrated, symptoms are improved. Patient states 3/10 back pain at this time intermittent. Pain is exacerbated now by movement. UA is normal no leukocytes no nitrates, BUN/creatinine are normal labs are normal. Plan DC to home with prescriptions take NSAIDs as needed for back pain, moist heat therapy, back exercises. Follow-up with your primary care doctor in 2 to 3 days. Patient verbalized agreement and understanding with discharge plan. Patient will be DC'd home in stable condition at this time. Critical care attestation.: If time is entered above; I have spent that time in minutes in the direct care of this critically ill patient, excluding procedure time. ED Disposition Clinical Impression: Back pain Qualifiers: Back pain location: low back pain Chronicity: acute Back pain laterality: bilateral Sciatica presence: without sciatica Qualified Code(s): M54.50 - Low back pain, unspecified Disposition: HOME / SELF CARE / HOMELESS Is pt being admited?: No Does the pt Need Aspirin: No Condition: Stable Instructions: Acute Back Pain, Adult Additional Instructions: Take medications as prescribed, back exercises as directed. Follow-up with your doctor in 2 to 3 days. Return to emergency department should symptoms worsen. Prescriptions: Cyclobenzaprine [Flexeril] 10 mg PO TID PRN #20 tablet PRN Reason: Muscle Spasm Naproxen 500 mg PO BID PRN #30 tablet PRN Reason: pain Menthol/Camphor [[place] Ointment] 1 applicator TP QID PRN #1 tube PRN Reason: muscle book Referrals: NAHOMY KONG MD [Staff Physician] - 3-5 Days Forms: Work/School Release Form(ED) Time of Disposition: 04:41
[2021-11-06 20:58] LABS: Basophils # (Auto) 0.1 K/mm3 (0.0-0.1); Basophils % (Auto) 0.6 % (0.0-1.8); Eosinophils # (Auto) 0.9 K/mm3 (0.0-0.4); Eosinophils % (Auto) 6.9 % (0.0-4.3); Hematocrit 44.3 % (35.5-45.6); Lymphocytes # (Auto) 0.3 K/mm3 (1.2-5.4); Lymphocytes % (Auto) 2.7 % (13.4-35.0); Mean Corpuscular HGB Conc 32 % (32-34); Mean Corpuscular Volume 94 fl (84-94); Monocytes # (Auto) 1.6 K/mm3 (0.0-0.8); Monocytes % (Auto) 12.9 % (0.0-7.3); Platelet Count 206 K/mm3 (140-440); Red Blood Count 4.73 M/mm3 (3.65-5.03); Red Cell Distribution Width 14.9 % (13.2-15.2)
[2021-11-06 21:17] LABS: Alanine Aminotransferase 17 units/L (7-56); Albumin 4.6 g/dL (3.9-5); BUN/Creatinine Ratio 9; Blood Urea Nitrogen 10 mg/dL (9-20); Calcium 9.7 mg/dL (8.4-10.2); Hemolysis Index 13
[2021-11-07] MEDS ORDERED: IBUPROFEN 800 MG TAB PO ONE (02:27)
[2021-11-07] MEDS ORDERED: ACETAMINOPHEN 500 MG TAB PO ONE (02:27)
[2021-11-07 02:38] LABS: Bilirubin,Urine NEG (Negative); Blood,Urine NEG (Negative); Color,Urine Yellow (Yellow); Mucus,Urine 2+ /HPF; Protein,Urine <15 mg/dL mg/dL (Negative)
[2021-11-07 05:28] VITALS: BP 116/82
== END 2021-11-07 05:25 | disposition home or self-care (01) ==
LOC: ED 16:36
DX: M54.50 Low back pain, unspecified (principal); I10 Essential (primary) hypertension; J45.909 Unspecified asthma, uncomplicated
CPT/HCPCS: 36415; 80053; 81001; 83690; 85025; 96361; 96374; 96375; 99283; J2405; J7030; Q0162

== ENCOUNTER 2022-05-30 06:48 | Emergency (ER) | payer SELFPAY ==
--- NOTE | 2022-05-30 06:59 | Emergency Department Report ---
ED Shortness of Breath HPI - General Stated Complaint: ANNETTE/SOB Time Seen by Provider: 05/30/22 06:55 - History of Present Illness Initial Comments: Patient is a 41-year-old male with history of asthma brought in by EMS from home with complaint of acute shortness of breath beginning this morning. He reports frequent asthma attacks which have required positive pressure ventilation. He is unsure if he has ever been intubated. States he took multiple nebs at home. EMS arrived to find patient tachypneic in the high 20s with oxygen sats in the high 80s. He was subsequently given bronchodilators, IV magnesium and IV Solu- Medrol. He was also placed on BiPAP in route. - Related Data Previous Rx's Medication Instructions Recorded Last Taken Type ALBUTEROL NEB's [Proventil 0.083% 2.5 mg IH TID PRN #1 box 12/12/16 Unknown Rx NEBS] Albuterol Mdi (or & Nicu Only) 2 puff IH QID PRN #1 inhalation 12/12/16 Unknown Rx [ProAir HFA Inhaler] Azithromycin [Zithromax Z-DIANELYS] 250 mg PO DAILY #6 tab 12/12/16 Unknown Rx predniSONE [Deltasone] 20 mg PO BID #10 tab 12/12/16 Unknown Rx Albuterol Mdi (or & Nicu Only) 2 puff IH QID PRN #1 inhalation 07/12/19 Unknown Rx [ProAir HFA Inhaler] Azithromycin [Zithromax Z-DIANELYS] 250 mg PO DAILY 1 Days tab 07/12/19 Unknown Rx Albuterol Sulfate [Proventil Hfa] 1 - 2 inhalation IH TID PRN #1 03/30/21 Unknown Rx hfa.aer.ad Ipratropium/Albuterol Sulfate 1 ampul IH Q6HR PRN #30 vial 03/30/21 Unknown Rx [DUONEB *Not for PRN Use*] Nebulizer and Compressor 1 each MC TID #1 each 03/30/21 Unknown Rx [Compressor Nebulizer System] Prednisone [predniSONE 10 mg 10 mg PO .TAPER #1 tab.ds.pk 03/30/21 Unknown Rx (6-Day Pack, 21 Tabs)] Azithromycin [Zithromax] 500 mg PO QDAY #5 tablet 05/04/21 Unknown Rx Montelukast [Singulair] 10 mg PO QPM #14 tablet 05/04/21 Unknown Rx predniSONE [Deltasone] 20 mg PO QDAY #5 tab 05/04/21 Unknown Rx Cyclobenzaprine [Flexeril] 10 mg PO TID PRN #20 tablet 11/07/21 Unknown Rx Menthol/Camphor [[place] 1 applicator TP QID PRN #1 tube 11/07/21 Unknown Rx Ointment] Naproxen 500 mg PO BID PRN #30 tablet 11/07/21 Unknown Rx Albuterol Mdi (or & Nicu Only) 2 puff IH QID PRN #8.5 gram 05/30/22 Unknown Rx [ProAir HFA Inhaler] predniSONE [Deltasone] 40 mg PO QDAY #10 tab 05/30/22 Unknown Rx Allergies Allergy/AdvReac Type Severity Reaction Status Date / Time No Known Allergies Allergy Verified 05/04/21 22:43 ED Review of Systems ROS: Stated complaint: ANNETTE/SOB Other details as noted in HPI Constitutional: denies: chills, fever Respiratory: shortness of breath, SOB at rest, wheezing Cardiovascular: denies: chest pain, palpitations Gastrointestinal: denies: abdominal pain, nausea, diarrhea Genitourinary: denies: urgency, dysuria Musculoskeletal: denies: back pain, joint swelling, arthralgia Skin: denies: rash, lesions Neurological: denies: headache, weakness, paresthesias Psychiatric: denies: anxiety, depression ED Past Medical Hx - Past Medical History Hx Hypertension: Yes Hx Asthma: Yes Additional medical history: "BRONCHITIS" - Social History Smoking Status: Never Smoker Substance Use Type: None - Medications Home Medications: Home Medications Medication Instructions Recorded Confirmed Last Taken Type ALBUTEROL NEB's [Proventil 0.083% 2.5 mg IH TID PRN #1 box 12/12/16 Unknown Rx NEBS] Albuterol Mdi (or & Nicu Only) 2 puff IH QID PRN #1 inhalation 12/12/16 Unknown Rx [ProAir HFA Inhaler] Azithromycin [Zithromax Z-DIANELYS] 250 mg PO DAILY #6 tab 12/12/16 Unknown Rx predniSONE [Deltasone] 20 mg PO BID #10 tab 12/12/16 Unknown Rx Albuterol Mdi (or & Nicu Only) 2 puff IH QID PRN #1 inhalation 07/12/19 Unknown Rx [ProAir HFA Inhaler] Azithromycin [Zithromax Z-DIANELYS] 250 mg PO DAILY 1 Days tab 07/12/19 Unknown Rx Albuterol Sulfate [Proventil Hfa] 1 - 2 inhalation IH TID PRN #1 03/30/21 Unknown Rx hfa.aer.ad Ipratropium/Albuterol Sulfate 1 ampul IH Q6HR PRN #30 vial 03/30/21 Unknown Rx [DUONEB *Not for PRN Use*] Nebulizer and Compressor 1 each MC TID #1 each 03/30/21 Unknown Rx [Compressor Nebulizer System] Prednisone [predniSONE 10 mg 10 mg PO .TAPER #1 tab.ds.pk 03/30/21 Unknown Rx (6-Day Pack, 21 Tabs)] Azithromycin [Zithromax] 500 mg PO QDAY #5 tablet 05/04/21 Unknown Rx Montelukast [Singulair] 10 mg PO QPM #14 tablet 05/04/21 Unknown Rx predniSONE [Deltasone] 20 mg PO QDAY #5 tab 05/04/21 Unknown Rx Cyclobenzaprine [Flexeril] 10 mg PO TID PRN #20 tablet 11/07/21 Unknown Rx Menthol/Camphor [[place] 1 applicator TP QID PRN #1 tube 11/07/21 Unknown Rx Ointment] Naproxen 500 mg PO BID PRN #30 tablet 11/07/21 Unknown Rx Albuterol Mdi (or & Nicu Only) 2 puff IH QID PRN #8.5 gram 05/30/22 Unknown Rx [ProAir HFA Inhaler] predniSONE [Deltasone] 40 mg PO QDAY #10 tab 05/30/22 Unknown Rx ED Physical Exam - General General appearance: alert, in no apparent distress - Head Head exam: Present: atraumatic, normocephalic - Neck Neck exam: Present: normal inspection. Absent: tenderness - Respiratory Respiratory exam: Present: respiratory distress, wheezes (Bilateral diffuse expiratory wheezing), accessory muscle use, other (On BiPAP) - Cardiovascular Cardiovascular Exam: Present: regular rate, normal rhythm, normal heart sounds - GI/Abdominal GI/Abdominal exam: Present: soft. Absent: distended, tenderness - Rectal Rectal exam: Present: deferred - Neurological Exam Neurological exam: Present: alert, oriented X3 - Psychiatric Psychiatric exam: Present: normal affect, normal mood - Skin Skin exam: Present: warm, dry, intact, normal color ED Course Vital Signs 05/30/22 05/30/22 05/30/22 07:06 07:16 07:20 Temperature 97.5 F L Pulse Rate 105 H 98 H 101 H Pulse Rate [ Bilateral Throughout] Respiratory 24 22 32 H Rate Respiratory Rate [Bilateral Throughout] Blood Pressure 157/109 160/113 Blood Pressure 151/120 [Right] O2 Sat by Pulse 100 98 Oximetry 05/30/22 05/30/22 05/30/22 07:30 07:46 07:55 Temperature Pulse Rate 97 H 107 H Pulse Rate [ 105 H Bilateral Throughout] Respiratory 25 H 24 24 Rate Respiratory 25 H Rate [Bilateral Throughout] Blood Pressure 157/109 157/109 Blood Pressure [Right] O2 Sat by Pulse 99 99 100 Oximetry 05/30/22 05/30/22 05/30/22 08:00 08:16 08:30 Temperature Pulse Rate 104 H 95 H 114 H Pulse Rate [ Bilateral Throughout] Respiratory 25 H 23 31 H Rate Respiratory Rate [Bilateral Throughout] Blood Pressure 160/113 157/104 157/109 Blood Pressure [Right] O2 Sat by Pulse 100 99 100 Oximetry 05/30/22 05/30/22 05/30/22 08:46 09:00 09:16 Temperature Pulse Rate 101 H 107 H 114 H Pulse Rate [ Bilateral Throughout] Respiratory 24 26 H 23 Rate Respiratory Rate [Bilateral Throughout] Blood Pressure 149/105 149/105 157/109 Blood Pressure [Right] O2 Sat by Pulse 100 100 99 Oximetry 05/30/22 05/30/22 05/30/22 09:30 09:46 10:00 Temperature Pulse Rate 111 H 105 H 114 H Pulse Rate [ Bilateral Throughout] Respiratory 20 19 29 H Rate Respiratory Rate [Bilateral Throughout] Blood Pressure 157/109 145/107 145/107 Blood Pressure [Right] O2 Sat by Pulse 99 100 100 Oximetry 05/30/22 05/30/22 05/30/22 10:16 10:30 10:46 Temperature Pulse Rate 123 H 116 H 94 H Pulse Rate [ Bilateral Throughout] Respiratory 19 24 24 Rate Respiratory Rate [Bilateral Throughout] Blood Pressure 147/114 147/114 143/94 Blood Pressure [Right] O2 Sat by Pulse 99 100 98 Oximetry 05/30/22 05/30/22 05/30/22 11:00 11:10 11:16 Temperature Pulse Rate 98 H 109 H Pulse Rate [ 100 H Bilateral Throughout] Respiratory 18 19 Rate Respiratory 18 Rate [Bilateral Throughout] Blood Pressure 143/94 150/109 Blood Pressure [Right] O2 Sat by Pulse 95 95 Oximetry 05/30/22 05/30/22 05/30/22 11:30 11:46 12:00 Temperature Pulse Rate 68 99 H 74 Pulse Rate [ Bilateral Throughout] Respiratory 25 H 20 23 Rate Respiratory Rate [Bilateral Throughout] Blood Pressure 150/109 129/79 129/79 Blood Pressure [Right] O2 Sat by Pulse 96 95 Oximetry ED Medical Decision Making - Lab Data Result diagrams: 05/30/22 07:40 05/30/22 07:40 - Medical Decision Making Chest x-ray unremarkable. Patient given additional nebs. He was eventually weaned off of BiPAP. On initial reassessment patient sleeping comfortably in bed. Upon awakening states he feels better and requests a meal tray. He was provided a meal tray and observed for another hour. On my final reassessment patient is sleeping comfortably in bed. He has been off of supplemental oxygen for over an hour with oxygen saturations of 95 to 96%. He is stable for discha rge home. Critical care attestation.: If time is entered above; I have spent that time in minutes in the direct care of this critically ill patient, excluding procedure time. ED Disposition Clinical Impression: Asthma exacerbation Disposition: 01 HOME / SELF CARE / HOMELESS Is pt being admited?: No Condition: Stable Instructions: Asthma, Adult Additional Instructions: Please follow-up with your regular doctor within 1 week. You may return if your symptoms worsen. Time of Disposition: 13:56
[2022-05-30] MEDS ORDERED: ALBUTEROL 2.5 MG/3 ML NEBU IH ONE ×2 (07:00→11:04)
[2022-05-30 08:00] LABS: Hematocrit 48.7 % (35.5-45.6); Hemoglobin 15.6 gm/dl (11.8-15.2); Mean Corpuscular HGB Conc 32 % (32-34); Mean Corpuscular Volume 97 fl (84-94); Platelet Count 215 K/mm3 (140-440); Red Blood Count 5.04 M/mm3 (3.65-5.03)
[2022-05-30 08:20] LABS: Alanine Aminotransferase 21 units/L (7-56); Albumin 4.6 g/dL (3.9-5); BUN/Creatinine Ratio 11; Blood Urea Nitrogen 10 mg/dL (9-20); Calcium 9.6 mg/dL (8.4-10.2); Hemolysis Index 21
--- NOTE | 2022-05-30 09:58 | XRay Report ---
CHEST 1 VIEW 05/30/2022 8:51 AM INDICATION / CLINICAL INFORMATION: Shortness of breath. COMPARISON: 07/12/2019 FINDINGS: SUPPORT DEVICES: None. HEART / MEDIASTINUM: No significant abnormality. LUNGS / PLEURA: No significant pulmonary or pleural abnormality. No pneumothorax. ADDITIONAL FINDINGS: No significant additional findings. IMPRESSION: 1. No acute findings. Signer Name: Alden Rivas Jr, MD Signed: 05/30/2022 9:54 AM Workstation Name: [id number]
[2022-05-30] MEDS ORDERED: IPRATROPIUM 0.02% NEBU 2.5 ML IH ONE (11:05)
[2022-05-30 14:31] LABS: Band Neutrophils # (Manual) 0.4 K/mm3; Basophils % (Manual) 0 % (0.0-1.8); RBC Morphology Normal; Total Cells Counted 100
[2022-05-30 14:32] LABS: Platelet Estimate Consistent w Auto
[2022-05-30 15:28] VITALS: BP 128/85
== END 2022-05-30 15:29 | disposition home or self-care (01) ==
LOC: ED 06:48
DX: J45.901 Unspecified asthma with (acute) exacerbation (principal); I10 Essential (primary) hypertension
CPT/HCPCS: 36415; 71045; 80053; 85007; 85025; 94644; 99284